=== PATIENT | female | born 1970 ===

== ENCOUNTER 2016-09-11 10:15 | Emergency (ER) | payer OTHER, BC ==
[2016-09-11 10:34] VITALS: BP 121/72; PULSE 65; RESP 18; TEMP 98.6; O2SAT 98
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
== END 2016-09-11 14:53 | disposition home or self-care (01) ==
LOC: H.ER 10:15
DX: S09.90XA Unspecified injury of head, initial encounter (principal); M54.2 Cervicalgia; R07.89 Other chest pain; V43.52XA Car driver injured in collision with other type car in traffic accident, initial encounter; Y92.410 Unspecified street and highway as the place of occurrence of the external cause